=== PATIENT | male | born 1985 | race Caucasian/White ===

== ENCOUNTER 2018-01-28 19:30 | Emergency (ER) | payer SELFPAY ==
[2018-01-28] MEDS ORDERED: methylPREDNISolone Sod Succ/PF 125 MG/2 ML VIAL ONE (20:01)
[2018-01-28] MEDS ORDERED: Famotidine/PF 20 mg/2ml Vial ONE (20:01)
[2018-01-28] MEDS ORDERED: diphenhydrAMINE 50 MG/ML VIAL ONE (20:02)
== END 2018-01-28 21:52 | disposition home or self-care (01) ==
LOC: ERS 19:30
DX: L50.0 Allergic urticaria (principal); F17.210 Nicotine dependence, cigarettes, uncomplicated
CPT/HCPCS: 94760; 96374; 96375; J1200; J2930; S0028

== ENCOUNTER 2018-06-29 13:04 | Emergency (ER) | payer SELFPAY ==
[2018-06-29] MEDS ORDERED: Ibuprofen 800 MG TAB ONE (13:27)
--- NOTE | 2018-06-29 14:11 | RAD ---
2 VIEWS CHEST: Date: 06/29/18 COMPARISON: 08/24/12. HISTORY: Cough. FINDINGS: Two views of the chest show normal sized cardiomediastinal silhouette. There is no evidence of consol idation, mass, or pleural effusion. The bones are unremarkable. IMPRESSION: No evidence of acute cardiopulmonary disease. POS: [facility]
== END 2018-06-29 15:23 | disposition home or self-care (01) ==
LOC: ERS 13:04
DX: J11.1 Influenza due to unidentified influenza virus with other respiratory manifestations (principal); Z71.6 Tobacco abuse counseling; F17.210 Nicotine dependence, cigarettes, uncomplicated
CPT/HCPCS: 71046; 87804; 99406

== ENCOUNTER 2018-07-09 18:38 | Emergency (ER) | payer SELFPAY | END 2018-07-09 19:15 | disposition left against medical advice (07) | LOC: ERS 18:38 | DX: R06.02 Shortness of breath (principal); F17.210 Nicotine dependence, cigarettes, uncomplicated | CPT/HCPCS: 93005 ==

== ENCOUNTER 2018-11-14 16:55 | Emergency (ER) | payer SELFPAY | END 2018-11-14 17:14 | disposition left against medical advice (07) | LOC: ERS 16:55 | DX: Z53.21 Procedure and treatment not carried out due to patient leaving prior to being seen by health care provider (principal) ==

== ENCOUNTER 2019-03-20 23:27 | Emergency (ER) | payer SELFPAY ==
--- NOTE | 2019-03-21 07:41 | RAD ---
Exam:Left hand fifth digit 3 views HISTORY: Injury. Hit fifth digit with sledgehammer. Deformity. COMPARISON: None FINDINGS: Comminuted fracture involving the distal phalanx of the fifth digit. No definite intra-edgard cular extension. Associated soft tissue swelling. IMPRESSION: Comminuted fractures involving the distal phalanx of the fifth digit.
== END 2019-03-21 02:19 | disposition home or self-care (01) ==
LOC: ERS 23:27
DX: S62.637A Displaced fracture of distal phalanx of left little finger, initial encounter for closed fracture (principal); F17.200 Nicotine dependence, unspecified, uncomplicated; W23.1XXA Caught, crushed, jammed, or pinched between stationary objects, initial encounter
CPT/HCPCS: 99283

== ENCOUNTER 2019-03-27 09:54 | Day surgery (SDC) | payer OTHER, SELFPAY ==
[2019-03-26 16:45] VITALS: BMI 23.7
[2019-03-27] MEDS ORDERED: Dexamethasone 20 MG/5 ML VIAL ONE (10:10)
[2019-03-27] MEDS ORDERED: Bupivacaine PF 0.5% 30 ML VIAL ONE ×2 (10:10→11:53)
[2019-03-27] MEDS ORDERED: Fentanyl 100 MCG/2 ML VIAL ONE ×2 (10:19→12:02)
[2019-03-27] MEDS ORDERED: Midazolam HCl 2 mg/2 ml Vial ONE ×2 (10:19→12:02)
[2019-03-27] MEDS ORDERED: Dexamethasone 4 mg/ml Vial ONE (10:20)
[2019-03-27] MEDS ORDERED: Bacitracin Zinc Ointment 30 gm TUBE ONE (11:53)
[2019-03-27] MEDS ORDERED: Propofol 500 MG/50 ML VIAL ONE ×2 (12:02→13:59)
[2019-03-27] MEDS ORDERED: Ketamine 50 MG/ML (10ML VIAL) ONE (12:02)
--- NOTE | 2019-03-27 14:35 | RAD ---
EXAM: 3 views of the left small finger HISTORY: ORIF of small finger fracture COMPARISON: 03/21/2019 FINDINGS: The patient is status post plate and screw fixation of a fracture of the distal phalanx of the small finger. No perihardware lucency is seen. IMPRESSION: Status post ORIF of distal phalanx fracture without evidence of complication.
--- NOTE | 2019-03-28 08:35 | OP ---
DATE OF PROCEDURE: 03/27/2019 PREOPERATIVE DIAGNOSES: 1. Left small finger displaced distal phalanx fracture, comminuted. 2. Avulsion, flexor digitorum profundus tendon, left small finger distal phalanx. PROCEDURES PERFORMED: 1. Open reduction and internal fixation of left distal phalanx fracture. 2. Repair, avulsion, flexor digitorum profundus tendon. 3. C-arm supervision and fluoro. SPECIMENS: None. COMPLICATIONS: None. ESTIMATED BLOOD LOSS: 20 mL. TOURNIQUET TIME: 88 minutes. C-ARM USED: Yes. 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 DESCRIPTION OF PROCEDURE: After successful general endotracheal anesthesia, the limb was prepped and draped. Time-out was done appropriately. He was given additional 10 mL of 0.5% Marcaine block to augment an already apparently functioning block. With the limb exsanguinated, tourniquet inflated to 250 mmHg pressure. We attempted closed reduction x2 with 3 FiberWire, could not achieve it. For this reason, we then made a zigzag incision, beginning detention between the tuft pad and the nail tip on the radial side of the digit and then carried this through skin and subcutaneous tissue, identified neurovascular bundle, 1st on the radial side and then ulnar side, protected them. We then could easily see that the block of bone with the flexor tendon was approximately 4 mm, with an oblique fracture proximally, very thin at the palmar aspect and bigger at the dorsum, that could stand internal fixation, and therefore, we debrided the fracture on both sides of the avulsion of the tendon, placed a plate on the bone and began internal fixation. We used a 1/3 plate with 1/3 screws, 1-0 drill was used to make the screw hole, we began proximally. After we cut the plate, dissected slightly more distally, placed a plate against the bone, sparing all neurovascular bundle structures. We then placed 2 screws proximally, following the fracture line being 1 to 2 mm proximal to it. This avoid the joint. Then, we made sure it was reduction and we placed 2 screws proximally and distally initially, then revised this because of the distraction and comminuted fracture. Then, bone graft at the comminution, because over reducing it would not allow the avulsion fracture fragment to summers in appropriately. Once we saw our nearly anatomic position, there was no graft malrotation. We deflated the tourniquet. The digit was pink with a 1.5-second capillary refill including the dorsum and the nail bed area. We then approximated the skin only with 4-0 nylon interrupted simple pattern, placed the patient in a position of a dorsal block splint as if he had a flexor digitorum profundus avulsion fracture alone because he did have flexor digitorum profundus avulsion fracture repair. The frontal sagittal plane views along with the fluoro, which showed no gap formation when pushing the finger down to 60 degrees, were utilized as well. Please note that in recovery room, 35 minutes after the procedure was accomplished, had 1-second refill with pink digit tip. Job ID: [id number]
== END 2019-03-27 16:20 | disposition home or self-care (01) ==
LOC: SDC 09:54
PROVIDERS: ATTEND Orthopaedic Surgery Hand Surgery
PROC: 0LM80ZZ Reattachment of Left Hand Tendon, Open Approach (ICD-10-PCS; principal; 2019-03-27)
PROC: 0PSV04Z Reposition Left Finger Phalanx with Internal Fixation Device, Open Approach (ICD-10-PCS; principal; 2019-03-27)
DX: S62.637A Displaced fracture of distal phalanx of left little finger, initial encounter for closed fracture (principal); F17.200 Nicotine dependence, unspecified, uncomplicated; X50.0XXA Overexertion from strenuous movement or load, initial encounter; Y99.0 Civilian activity done for income or pay
CPT/HCPCS: 76000; J1100; J2250; J2704; J3010; J3490; S0020

== ENCOUNTER 2019-04-03 16:23 | Emergency (ER) | payer SELFPAY | END 2019-04-03 16:55 | disposition left against medical advice (07) | LOC: ERS 16:23 | DX: R06.02 Shortness of breath (principal); F17.200 Nicotine dependence, unspecified, uncomplicated ==

== ENCOUNTER 2022-04-03 08:20 | Observation (INO) | payer SELFPAY ==
[2022-04-03] MEDS ORDERED: Acetaminophen 500 MG TAB ONE (09:00)
[2022-04-03 09:12] LABS: #Eosinphils 0.3 thou/uL (0.0-0.7); #Lymphocytes 1.8 thou/uL (1.20-3.40); #Monocytes 0.8 thou/uL (0.11-0.59); #Neutrophils 5.1 thou/uL (1.40-6.50); %Basophils 0.5 % (0.0-1.0); %Lymphocytes 22.1 % (21.0-51.0); %Monocytes 9.5 % (0.0-10.0); Hemoglobin 16.2 g/dL (14.0-18.0); Mean Corpuscular HGB CONC 34.7 g/dL (32.0-36.0); Mean Corpuscular Hemoglobin 32.1 pg (27.0-31.0); Mean Corpuscular Volume 92.7 fl (78.0-98.0); Mean Platelet Volume 7.7 fL (7.4-10.4); Platelet Count 271 10x3/uL (130-400); RBC Distribution Width 11.6 % (11.5-14.5); Red Blood Cell (RBC) Count 5.04 mill/uL (4.70-6.10); White Blood Cell (WBC) Count 7.9 10x3/uL (4.8-10.8)
[2022-04-03 09:29] LABS: ALT (SGPT) 11 U/L (8-55); AST (SGOT) 16 U/L (5-34); Albumin 3.8 g/dL (3.5-5.0); Alkaline Phosphatase 111 U/L (40-110); Anion Gap 15 mmol/L (10-20); BUN (Urea Nitrogen) 12 mg/dL (8.9-20.6); Bilirubin, Total 0.3 mg/dL (0.2-1.2); Calc. Creatinine Clearance 0 mL/min (70-130); Calcium 9.4 mg/dL (7.8-10.44); Carbon Dioxide 23 mmol/L (22-29); Chloride 104 mmol/L (98-107); Estimated GFR 116; Globulin 3.6 g/dL (2.4-3.5); Glucose 89 mg/dL (70-105); Lipase 18 U/L (8-78); Potassium 4.1 mmol/L (3.5-5.1); Protein, Total 7.4 g/dL (6.0-8.3); Sodium 138 mmol/L (136-145)
[2022-04-03] MEDS ORDERED: Iopamidol-370 76% 500 ML 1 ML ONE (10:10)
[2022-04-03] MEDS ORDERED: Dicyclomine 20 MG/2 ML VIAL ONE (11:35)
[2022-04-03] MEDS ORDERED: Ondansetron PF 4 MG/2 ML Vial ONE (11:35)
[2022-04-03] MEDS ORDERED: Acetaminophen 325 MG TAB PO PRN (12:11)
[2022-04-03] MEDS ORDERED: Ondansetron PF 4 MG/2 ML Vial IVP PRN (12:11)
[2022-04-03] MEDS ORDERED: Nicotine 14 MG PATCH TD PRN (12:11)
[2022-04-03] MEDS ORDERED: Ondansetron ODT 4 MG TAB PO PRN (12:11)
[2022-04-03 13:28] LABS: SARS-CoV-2 NAA Rapid Test Not Detected (NotDetected)
[2022-04-03] MEDS: Lactated Ringer's 1,000 ML IV SCH ×2 (13:38→21:57)
[2022-04-03 13:48] VITALS: BMI 23.5
[2022-04-03] MEDS: Dicyclomine 20 MG/2 ML VIAL IM SCH ×2 (15:04→21:55)
[2022-04-03] MEDS: Ketorolac Tromethamine 30 MG/ML VIAL IVP SCH (17:32)
[2022-04-03] MEDS ORDERED: FLU VACC QS2022-23(6MOS UP)/PF 60 MCG/0.5 ML SYRINGE IM ONE (18:00)
[2022-04-03] MEDS: Famotidine 20 MG TAB PO SCH (21:56)
[2022-04-04] MEDS: Ketorolac Tromethamine 30 MG/ML VIAL IVP SCH ×3 (01:08→12:04)
[2022-04-04] MEDS: Lactated Ringer's 1,000 ML IV SCH (05:49)
[2022-04-04 07:23] LABS: #Eosinphils 0.3 thou/uL (0.0-0.7); #Lymphocytes 1.7 thou/uL (1.20-3.40); #Monocytes 0.4 thou/uL (0.11-0.59); #Neutrophils 2.9 thou/uL (1.40-6.50); %Basophils 0.5 % (0.0-1.0); %Eosinophils 5.4 % (0.0-10.0); %Lymphocytes 31.4 % (21.0-51.0); %Monocytes 7.7 % (0.0-10.0); %Neutrophils 54.9 % (42.0-75.0); Hemoglobin 13.8 g/dL (14.0-18.0); Mean Corpuscular HGB CONC 33.2 g/dL (32.0-36.0); Mean Corpuscular Hemoglobin 31.1 pg (27.0-31.0); Mean Corpuscular Volume 93.6 fl (78.0-98.0); Mean Platelet Volume 7.2 fL (7.4-10.4); Platelet Count 280 10x3/uL (130-400); RBC Distribution Width 11.3 % (11.5-14.5); Red Blood Cell (RBC) Count 4.45 mill/uL (4.70-6.10); White Blood Cell (WBC) Count 5.3 10x3/uL (4.8-10.8)
[2022-04-04 07:46] LABS: Anion Gap 11 mmol/L (10-20); BUN (Urea Nitrogen) 8 mg/dL (8.9-20.6); Calc. Creatinine Clearance 166 mL/min (70-130); Carbon Dioxide 25 mmol/L (22-29); Chloride 106 mmol/L (98-107); Estimated GFR 123; Glucose 81 mg/dL (70-105); Potassium 3.9 mmol/L (3.5-5.1); Sodium 138 mmol/L (136-145)
[2022-04-04] MEDS: Famotidine 20 MG TAB PO SCH (08:37)
[2022-04-04] MEDS ORDERED: Dicyclomine 10 MG CAP PO SCH (09:00)
[2022-04-04 13:28] VITALS: BP 114/72; TEMP 98.7
== END 2022-04-04 13:43 | disposition home or self-care (01) ==
LOC: ERS 08:20 → T4-B 11:59
PROVIDERS: ADMIT Internal Medicine; ATTEND Internal Medicine
DX: K52.9 Noninfective gastroenteritis and colitis, unspecified (principal); I88.0 Nonspecific mesenteric lymphadenitis; F17.200 Nicotine dependence, unspecified, uncomplicated; Z20.822 Contact with and (suspected) exposure to COVID-19
CPT/HCPCS: 36415; 74177; 80048; 80053; 83605; 83690; 85025; 96361; 96372; 96374; 96375; 96376; G0378; J1885; J2405; J7120; Q9967

== ENCOUNTER 2023-01-17 11:44 | Emergency (ER) | payer SELFPAY ==
[2023-01-17] MEDS ORDERED: Ketorolac Tromethamine 30 MG/ML VIAL ONE (14:24)
== END 2023-01-17 14:43 | disposition home or self-care (01) ==
LOC: ERS 11:44
DX: S63.290A Dislocation of distal interphalangeal joint of right index finger, initial encounter (principal); F17.210 Nicotine dependence, cigarettes, uncomplicated; Y04.8XXA Assault by other bodily force, initial encounter
CPT/HCPCS: 96372; 99283; J1885

== ENCOUNTER 2023-03-12 15:05 | Emergency (ER) | payer SELFPAY ==
[~2023-03-12 15:05] MED LIST: Iopamidol-370 76% 500 ML MDV (1 ML CHARGE) ONE
[2023-03-12] MEDS ORDERED: Morphine 4 MG/ML VIAL ONE (16:06)
[2023-03-12] MEDS ORDERED: Ondansetron PF 4 MG/2 ML Vial ONE ×2 (16:06→16:38)
[2023-03-12 16:11] LABS: #Eosinphils 0.1 thou/uL (0.0-0.7); #Monocytes 0.5 thou/uL (0.11-0.59); #Neutrophils 10.8 thou/uL (1.40-6.50); %Basophils 0.2 % (0.0-1.0); %Eosinophils 1.1 % (0.0-10.0); %Lymphocytes 5.7 % (21.0-51.0); %Monocytes 4.3 % (0.0-10.0); %Neutrophils 88.4 % (42.0-75.0); Hematocrit 53.9 % (42.0-52.0); Hemoglobin 17.7 g/dL (14.0-18.0); Mean Corpuscular HGB CONC 32.8 g/dL (32.0-36.0); Mean Corpuscular Hemoglobin 31.2 pg (27.0-31.0); Mean Corpuscular Volume 95.1 fl (78.0-98.0); Mean Platelet Volume 9.1 fL (7.4-10.4); Platelet Count 353 10x3/uL (130-400); Red Blood Cell (RBC) Count 5.67 mill/uL (4.70-6.10); White Blood Cell (WBC) Count 12.2 10x3/uL (4.8-10.8)
[2023-03-12 16:30] LABS: ALT (SGPT) 22 U/L (8-55); AST (SGOT) 27 U/L (5-34); Albumin 4.4 g/dL (3.5-5.0); Alkaline Phosphatase 110 U/L (40-110); Anion Gap 15 mmol/L (10-20); BUN (Urea Nitrogen) 22 mg/dL (8.9-20.6); Bilirubin, Total 0.9 mg/dL (0.2-1.2); Calc. Creatinine Clearance 0 mL/min (70-130); Calcium 9.6 mg/dL (7.8-10.44); Carbon Dioxide 22 mmol/L (22-29); Chloride 103 mmol/L (98-107); Estimated GFR 92; Globulin 4.2 g/dL (2.4-3.5); Glucose 103 mg/dL (70-105); Lipase 16 U/L (8-78); Potassium 4.4 mmol/L (3.5-5.1); Protein, Total 8.6 g/dL (6.0-8.3); Sodium 136 mmol/L (136-145)
[2023-03-12 16:31] LABS: Troponin I Less than 0.010 ng/mL (< 0.028)
== END 2023-03-12 21:25 | disposition home or self-care (01) ==
LOC: ERS 15:05
DX: R10.13 Epigastric pain (principal); R11.0 Nausea; I88.0 Nonspecific mesenteric lymphadenitis; F17.210 Nicotine dependence, cigarettes, uncomplicated
CPT/HCPCS: 71045; 74177; 80053; 83690; 84484; 85025; 96361; 96374; 96375; 96376; J2270; J2405; Q9967